=== PATIENT | male | born 1970 | race Caucasian/White ===

== ENCOUNTER 2017-04-15 04:36 | Emergency (ER) | payer OTHER ==
[~2017-04-15] VITALS: Ht 188 cm; Wt 89.1 kg
[2017-04-15 05:28] LABS: CHLORIDE 104 mEq/L (99-109); POTASSIUM 3.6 mEq/L (3.7-5.4); SODIUM 140 mEq/L (136-147)
[2017-04-15 05:31] LABS: GLUCOSE 98 mg/dL (70-99)
[2017-04-15 05:32] LABS: ANION GAP 10 MEQ/L (2-14)
[2017-04-15 05:33] LABS: TOTAL BILIRUBIN 0.7 mg/dL (0.0-1.0)
[2017-04-15 05:34] LABS: ALKALINE PHOSPHATASE 78 IU/L (3-129); GFR ESTIMATE (CALCULATED) > 59 mL/min/
[2017-04-15 05:35] LABS: UREA NITROGEN (BUN) 17 mg/dL (9-23)
[2017-04-15 05:36] LABS: HEMATOCRIT 37.2 % (38.0-50.0); MCH 31.3 PG (29.0-34.0); MCHC 34.1 G/DL (30.0-36.0); MCV 91.6 FL (86-99); MEAN PLAT.VOLUME 9.4 uM^3 (9.0-12.4); PLATELET COUNT 255 K/uL (156-360); RBC DIS.WIDTH-CV 11.6 % (11.8-14.6); RBC DIS.WIDTH-SD 39.4 % (39-53); RED BLOOD COUNT 4.06 M/uL (4.00-5.50); WHITE BLOOD COUNT 6.7 K/uL (4.1-10.2)
[2017-04-15 05:38] LABS: LIPASE 29 U/L (1.0-51.0)
[2017-04-15 05:52] LABS: TROP-I INTERPRETATION NEGATIVE; TROPONIN-I < 0.01 ng/mL (0.0-0.30)
[2017-04-15 06:36] LABS: ADD MIUA? NO; BILIRUBIN NEGATIVE; BLOOD NEGATIVE; COLOR YELLOW ((YELLOW)); GLUCOSE (STRIP) NEGATIVE; KETONES NEGATIVE; LEUKOCYTES NEGATIVE; NITRITE NEGATIVE; PROTEIN (STRIP) NEGATIVE; SPECIFIC GRAVITY 1.014 (1.000-1.030); UCUL ADDED? NO; UROBILINOGEN 0.2 MG/DL (0.2-1.0)
[2017-04-15 06:57] LABS: TROP-I INTERPRETATION NEGATIVE; TROPONIN-I < 0.01 ng/mL (0.0-0.30)
[2017-04-15 07:17] VITALS: BP 110/80
== END 2017-04-15 07:19 | disposition home or self-care (01) ==
LOC: EME → EDBD 04:36 → EME 07:19
PROVIDERS: Emergency Medicine
DX: R55 Syncope and collapse (principal); S80.02XA Contusion of left knee, initial encounter; S90.32XA Contusion of left foot, initial encounter; W22.09XA Striking against other stationary object, initial encounter
CPT/HCPCS: 71020; 73564; 73630; 80053; 81003; 83690; 84484; 85027; 93005; 99281; 99285; G0103; J7030